=== PATIENT | male | born 1995 | race African-American/Black ===

== ENCOUNTER → 2022-02-19 | Outpatient (CLI) | payer BC ==
--- NOTE | 2022-02-19 15:05 | KCIC ---
XR RT WRIST 3VIEWS DATE: 02/19/2022 2:15 PM INDICATION: RT WRIST PAIN/LROM/TRAUMA / Spl. Instructions: Pt fell with wrist out 8 days ago. Pain a cross ant/post carpals. / History: COMPARISON: None. FINDINGS: Bones: There is no evidence of acute fracture or dislocation. Joints: The joint spaces are normal. Miscellaneous: None. IMPRESSION: No evidence of acute fracture. Electronically signed by: Oscar Danielson MD (02/19/2022 3:02 PM) [place]
== END ==
LOC: KCIC 14:06
PROVIDERS: ATTEND Family Medicine
DX: M25.531 Pain in right wrist (principal)
CPT/HCPCS: 73110